=== PATIENT | male | born 1985 | race African-American/Black ===

== ENCOUNTER 2018-01-19 05:36 | Emergency (ER) | payer MEDICAID ==
[~2018-01-19] VITALS: Ht 162.6 cm; Wt 74.0 kg
[2018-01-19] MEDS ORDERED: KETOROLAC 60MG/2ML VIAL IM ONE (07:15)
[2018-01-19] MEDS ORDERED: CYCLOBENZAPRINE 10MG TABLET PO ONE (07:15)
[2018-01-19 08:25] VITALS: BP 116/58
== END 2018-01-19 09:49 | disposition home or self-care (01) ==
LOC: ER 05:36
DX: S10.93XA Contusion of unspecified part of neck, initial encounter (principal); M48.02 Spinal stenosis, cervical region; M62.838 Other muscle spasm; W20.8XXA Other cause of strike by thrown, projected or falling object, initial encounter; Y93.89 Activity, other specified; Y92.89 Other specified places as the place of occurrence of the external cause; Y99.8 Other external cause status
CPT/HCPCS: 72125; 96372; 99284; J1885; Z7610

== ENCOUNTER 2018-03-09 19:43 | Emergency (ER) | payer SELFPAY ==
[~2018-03-09] VITALS: Ht 162.6 cm; Wt 78.0 kg
[2018-03-10] MEDS ORDERED: SODIUM CHLORIDE 0.9% 500 ML IV ONE (00:30)
[2018-03-10] MEDS ORDERED: ACETAMINOPHEN 500MG TABLET PO ONE (00:30)
[2018-03-10] MEDS ORDERED: IBUPROFEN 400MG TABLET PO ONE (00:30)
[2018-03-10] MEDS ORDERED: METOCLOPRAMIDE HCL 10MG/2ML VIAL IV ONE (00:30)
[2018-03-10 02:50] VITALS: BP 112/59
== END 2018-03-10 02:50 | disposition home or self-care (01) ==
LOC: ER 21:40
DX: R51 Headache (principal); X30.XXXA Exposure to excessive natural heat, initial encounter; Y93.9 Activity, unspecified
CPT/HCPCS: 82962; 96361; 96374; 99284; J2765; J7040; Z7610